=== PATIENT | male | born 1965 ===

== ENCOUNTER 2023-09-12 17:51 | Emergency (ER) | payer OTHER ==
[~2023-09-12] VITALS: Ht 177.8 cm; Wt 68.0 kg
[2023-09-12] MEDS ORDERED: ACET-2080 PO (20:52)
[2023-09-12] MEDS ORDERED: IBUP-1554 PO (20:52)
[2023-09-12] MEDS: IBUPROFEN 600 MG TABLET PO ONE (21:19)
[2023-09-12 21:25] VITALS: BP 157/78; PULSE 79; RESP 16; TEMP 97.8
== END 2023-09-12 21:31 | disposition home or self-care (01) ==
LOC: EMS 17:56
DX: S82.52XA Displaced fracture of medial malleolus of left tibia, initial encounter for closed fracture (principal); I10 Essential (primary) hypertension; Z90.49 Acquired absence of other specified parts of digestive tract; X58.XXXA Exposure to other specified factors, initial encounter; Y93.89 Activity, other specified; Y92.89 Other specified places as the place of occurrence of the external cause; Y99.8 Other external cause status
CPT/HCPCS: 29515; 29540; 99284